=== PATIENT | female | born 1975 | race Caucasian/White ===

== ENCOUNTER 2017-01-09 00:44 | Emergency (ER) | payer MEDICARE ==
[~2017-01-09 00:44] MED LIST: BACTRIM DS TAB1 EAC2 PO; BENZTROPINE MESY2 MG; HYDROXYZINE HCL10 M1 PO; LAMICTAL25 M2 PO; PEN-VEE K500 MG PO; RISPERDAL1 MG/1 ML IM; RISPERDAL3 MG; RISPERDOL; VIBRAMYCIN100 MG PO; VICODIN 5/500 T1 TAB PO; XANAX0.5 M1 PO; XANAX0.5 MG
[2017-01-09] MEDS ORDERED: PENICILLIN V P500 M1 PO (00:58)
[2017-01-09] MEDS ORDERED: TESSALON PERLE100 M1 PO (00:59)
== END 2017-01-09 02:51 ==
LOC: EDMED 00:44
DX: S39.012A Strain of muscle, fascia and tendon of lower back, initial encounter (principal); E66.9 Obesity, unspecified; F31.9 Bipolar disorder, unspecified; Z98.51 Tubal ligation status; F17.200 Nicotine dependence, unspecified, uncomplicated; Z79.899 Other long term (current) drug therapy; X50.1XXA Overexertion from prolonged static or awkward postures, initial encounter; Y93.89 Activity, other specified; Y99.8 Other external cause status
CPT/HCPCS: J1170; J1885